=== PATIENT | female | born 1990 | race Caucasian/White ===

== ENCOUNTER 2017-08-06 18:53 | Emergency (ER) | payer SELFPAY ==
[~2017-08-06] VITALS: Ht 165.1 cm; Wt 65.0 kg
[2017-08-06 18:54] VITALS: BP 114/92; PULSE 108; RESP 16; TEMP 98.2; O2SAT 98
--- NOTE | 2017-08-06 20:10 | PD ---
HPI Chief Complaint: Complaint Time Seen by Provider: 20:05 Travel History International Travel<30 days: No Contact w/Intl Traveler<30days: No Traveled to known affect area: No History of Present Illness HPI 27-year-old female presents to the emergency department for evaluation of urinary symptoms. Patient reports dysuria, pressure, frequency, urgency. Current pain is 4/10. She denies any fevers or chills. No flank pain. No vomiting. She reports history of UTIs with similar symptoms. She denies any abnormal vaginal discharge or risk of STDs. Mild severity. PFSH Past Medical History Immunizations Current: Yes Tetanus Vaccination: Unknown Influenza Vaccination: Yes ?: Not LMP: 08/04/17 Social History Alcohol Use: No Tobacco Use: No Substance Use: No Allergies-Medications (Allergen,Severity, Reaction): Coded Allergies: No Known Allergies (Unverified , 08/06/17) Review of Systems Except as stated in HPI: all other systems reviewed are Neg Physical Exam Narrative GENERAL: Well-nourished, well-developed female patient, ambulatory. Afebrile. SKIN: Focused skin assessment warm/dry. HEAD: Normocephalic. Atraumatic. EYES: No scleral icterus. No injection or drainage. NECK: Supple, trachea midline. No JVD or lymphadenopathy. CARDIOVASCULAR: Regular rate and rhythm without murmurs, gallops, or rubs. RESPIRATORY: Breath sounds equal bilaterally. No accessory muscle use. Lungs sounds are clear to auscultation. GASTROINTESTINAL: Abdomen soft, non-tender, nondistended. MUSCULOSKELETAL: No cyanosis, or edema. BACK: Nontender without obvious deformity. No CVA tenderness. Data Data Last Documented VS Vital Signs Date Time Temp Pulse Resp B/P (MAP) Pulse Ox O2 Delivery O2 Flow Rate FiO2 08/06/17 18:54 98.2 108 16 114/92 (99) 98 Orders Orders Urinalysis - C+S If Indicated (08/06/17 20:05) Ed Urine Pregnancytest Poc (08/06/17 20:05) Urine Culture (08/06/17 20:10) Nitrofurantoin Monohyd Macrocr (Macrobid (08/06/17 20:45) Labs Laboratory Tests Test 08/06/17 20:10 Urine Color DARK-BROWN Urine Turbidity CLEAR Urine pH 5.5 Urine Specific [place] 1.006 Urine Protein NEG mg/dL Urine Glucose (UA) NEG mg/dL Urine Ketones NEG mg/dL Urine Occult Blood SMALL Urine Nitrite POS Urine Bilirubin NEG Urine Urobilinogen 2.0 MG/DL Urine Leukocyte Esterase MOD Urine RBC 7 /hpf Urine WBC 20 /hpf Urine Squamous Epithelial Cells 2 /hpf Urine Bacteria OCC /hpf Microscopic Urinalysis Comment CULTURE INDICATED MDM Medical Decision Making Medical Screen Exam Complete: Yes Emergency Medical Condition: Yes Medical Record Reviewed: Yes Differential Diagnosis UTI versus dysuria versus pyelonephritis Narrative Course 27-year-old female presents to the emergency department for evaluation of urinary symptoms, possible UTI. She denies any other symptoms or complaints. She appears well on exam. UA and urine test are ordered and pending. UA shows positive nitrate, moderate leukocyte esterase. Urine test is negative. Patient is given Macrobid first dose in the emergency department. She'll be discharged with a prescription for Macrobid. The patient was discharged in stable condition with instructions, including return instructions and follow up instructions. Diagnosis Primary Impression: Urinary tract infection Qualified Codes: N30.00 - Acute cystitis without hematuria Referrals: Primary Care Physician call for appointment Patient Instructions: General Instructions, Urinary Tract Infection in Women ( ED) Additional Instructions: Take antibiotic as directed until gone. Follow-up with your primary care physician. Return to the emergency department for any acute worsening of symptoms. Med/Other Pt SpecificInfo: Prescription(s) given Scripts Nitrofurantoin Monohydrate Macrocrystals (Macrobid) 100 Mg Capsule 100 MG PO BID for Infection for 7 Days, #14 CAP 0 Refills Prov: Nedra Francis 08/06/17 Disposition: 01 DISCHARGE HOME Condition: Stable Nedra Francis Aug 06, 2017 20:10
[2017-08-06 20:29] LABS: BACTERIA, URINE OCC /hpf; BILIRUBIN, URINE NEG (NEG); BLOOD, URINE SMALL (NEG); GLUCOSE,URINE NEG (NEG); KETONE, URINE NEG (NEG); NITRITE,URINE POS (NEG); PH, URINE 5.5 (5.0-8.5); SQUAMOUS EPITHELIAL CELL URINE 2 /hpf (0-5); URINE COLOR DARK-BROWN (YELLW/STRAW); URINE LEUKOCYTE ESTERASE MOD (NEG)
[2017-08-06] MEDS ORDERED: MACR100C2 PO (20:39)
[2017-08-06] MEDS ORDERED: NITROFURANTOIN MONOHYD MACROCR 100 MG CAP PO ONE (20:45)
== END 2017-08-06 20:59 | disposition home or self-care (01) ==
LOC: NEPK 18:53
DX: N30.00 Acute cystitis without hematuria (principal)
CPT/HCPCS: 81001; 84703; 87077; 87086; 87186; 99283

== ENCOUNTER 2017-08-14 18:35 | Emergency (ER) | payer SELFPAY ==
[~2017-08-14] VITALS: Ht 154.9 cm; Wt 70.0 kg
[~2017-08-14 18:35] MED LIST: MACR100C2 PO
[2017-08-14 18:53] VITALS: BP 127/84; PULSE 101; RESP 18; TEMP 99.3; O2SAT 97
[2017-08-14] MEDS ORDERED: diphenhydrAMINE HCL 25 MG CAP PO ONE (21:30)
[2017-08-14] MEDS ORDERED: DEXAMETHASONE SOD PHOS 20 MG/5 ML VIAL IM ONE (21:30)
[2017-08-14] MEDS ORDERED: FAMOTIDINE 20 MG TAB PO ONE (21:30)
--- NOTE | 2017-08-14 21:30 | PD ---
HPI Chief Complaint: Allergic/Adverse Reaction Time Seen by Provider: 21:18 Travel History International Travel<30 days: No Contact w/Intl Traveler<30days: No Traveled to known affect area: No History of Present Illness HPI 27-year-old female with no significant medical history presents emergency department for evaluation of a pruritic rash. Patient has a small amount of pruritic papules on her chin. She has a couple on her left anterior forearm and a couple on her left anterior thigh. Patient noticed these after doing yard work yesterday. She also used a new sunscreen yesterday. Patient has also been on Macrobid since August 06 for UTI. She has no rash or itching on her trunk or her greater extremities. Denies any chest pain or tightness. No difficulty breathing. No sensation of oral swelling or difficulty swallowing. No other symptoms to report. [facility] Past Medical History Medical History: Denies Significant Hx Immunizations Current: Yes Social History Alcohol Use: No Tobacco Use: No Substance Use: No Allergies-Medications (Allergen,Severity, Reaction): Coded Allergies: No Known Allergies (Unverified , 08/14/17) Reported Meds & Prescriptions Reported Meds & Active Scripts Active Macrobid (Nitrofurantoin Monohydrate Macrocrystals) 100 Mg Capsule 100 Mg PO BID 7 Days Review of Systems Except as stated in HPI: all other systems reviewed are Neg Physical Exam Narrative GENERAL: Well-nourished female patient, in no acute distress SKIN: Focused skin assessment warm/dry. Few scattered papules on the chin. There are couple other small papules on the left forearm and left thigh. No pustular vesicle formation. HEAD: Atraumatic. Normocephalic. EYES: Pupils equal and round. No scleral icterus. No injection or drainage. ENT: No nasal bleeding or discharge. Mucous membranes pink and moist. No tongue swelling. No uvular edema. NECK: Trachea midline. No JVD. No stridor CARDIOVASCULAR: Regular rate and rhythm. No murmur appreciated. RESPIRATORY: No accessory muscle use. Clear to auscultation. Breath sounds equal bilaterally. GASTROINTESTINAL: Abdomen soft, non-tender, nondistended. Hepatic and splenic margins not palpable. MUSCULOSKELETAL: No obvious deformities. No clubbing. No cyanosis. No edema. NEUROLOGICAL: Awake and alert. No obvious cranial nerve deficits. Motor grossly within normal limits. Normal speech. PSYCHIATRIC: Appropriate mood and affect; insight and judgment normal. Data Data Last Documented VS Vital Signs Date Time Temp Pulse Resp B/P (MAP) Pulse Ox O2 Delivery O2 Flow Rate FiO2 08/14/17 18:53 99.3 101 18 127/84 (98) 97 Orders Orders Famotidine (Pepcid) (08/14/17 21:30) Dexamethasone Inj (Decadron Inj) (08/14/17 21:30) Diphenhydramine (Benadryl) (08/14/17 21:30) Ed Discharge Order (08/14/17 21:32) [facility] Medical Decision Making Medical Screen Exam Complete: Yes Emergency Medical Condition: Yes Medical Record Reviewed: Yes Differential Diagnosis Contact dermatitis versus eczema versus acne versus allergic reaction Narrative Course 27-year-old female presents emergency department for evaluation of pruritic rash. This is likely secondary from either yardwork or sunscreen either way appears to be a contact dermatitis. It is very mild. Have encouraged patient to continue Benadryl and Zantac. She will be given a dose of Decadron here. She is encouraged to follow-up with the primary care provider and return immediately with any acute worsening symptoms. Diagnosis Primary Impression: Contact dermatitis Qualified Codes: L25.9 - Unspecified contact dermatitis, unspecified cause Referrals: [facility] Primary Care Physician Patient Instructions: Contact Dermatitis (ED), General Instructions Additional Instructions: Avoid scratching the rash Continue Benadryl as directed on the package as needed for itching Consider [id number] Zantac or ranitidine as directed on the package for the next 3 days Follow-up with a primary care provider Return immediately with any acute worsening symptoms Med/Other Pt SpecificInfo: No Change to Meds Disposition: 01 DISCHARGE HOME Condition: Stable Kamilla JacksonP Aug 14, 2017 21:30
== END 2017-08-14 21:59 | disposition home or self-care (01) ==
LOC: NEPC 18:35
DX: L25.9 Unspecified contact dermatitis, unspecified cause (principal)
CPT/HCPCS: 96372; 99283; J1100

== ENCOUNTER 2017-11-11 12:25 | Emergency (ER) | payer MEDICAID ==
[~2017-11-11] VITALS: Ht 152.4 cm; Wt 75.0 kg
[2017-11-11 12:46] VITALS: BP 139/98; PULSE 93; RESP 20; TEMP 98.1; O2SAT 98
--- NOTE | 2017-11-11 13:53 | PD ---
HPI Chief Complaint: Flank/Kidney Pain Time Seen by Provider: 12:57 Travel History International Travel<30 days: No Contact w/Intl Traveler<30days: No Traveled to known affect area: No History of Present Illness HPI The patient was seen and examined in the presence of the nurse. This patient complains of abdominal pain. Location is left lower quadrant. Severity is moderate. Duration 2 days. No alleviating factors. She has some nausea and vomiting. No diarrhea. No fever. She denies urinary complaints. No pelvic discharge or symptoms. No exacerbating factors. PFSH Past Medical History Medical History: Denies Significant Hx Immunizations Current: Yes Tetanus Vaccination: Unknown Influenza Vaccination: Yes ?: Not LMP: 10/19/17 Past Surgical History Section: Yes Social History Alcohol Use: No Tobacco Use: No Substance Use: No Allergies-Medications (Allergen,Severity, Reaction): Coded Allergies: No Known Allergies (Unverified , 11/11/17) Reported Meds & Prescriptions Reported Meds & Active Scripts Active Zofran (Ondansetron HCl) 4 Mg Tab 4 Mg PO Q6HR PRN Percocet (Oxycodone-Acetaminophen) 7.5-325 mg Tab 1 Tab PO Q6H PRN Review of Systems General / Constitutional: No: Fever Eyes: No: Visual changes HENT: No: Headaches Cardiovascular: No: Chest Pain or Discomfort Respiratory: No: Shortness of Breath Gastrointestinal: Positive: Nausea, Vomiting, Abdominal Pain Genitourinary: No: Dysuria Musculoskeletal: No: Pain Skin: No Rash Neurologic: No: Weakness Psychiatric: No: Depression Endocrine: No: Polydipsia Hematologic/Lymphatic: No: Easy Bruising Physical Exam Narrative GENERAL: Well-nourished, well-developed patient with left lower quadrant pain SKIN: Focused skin assessment reveals no rash and nodules. Skin is Warm and dry. HEAD: Atraumatic. Normocephalic. EYES: Pupils equal and round. No scleral icterus. No injection or drainage. ENT: No nasal bleeding or discharge. Mucous membranes pink and moist. NECK: Trachea midline. No JVD. CARDIOVASCULAR: Regular rate and rhythm. No murmur appreciated. RESPIRATORY: No accessory muscle use. Clear to auscultation. Breath sounds equal bilaterally. GASTROINTESTINAL: Abdomen soft, mild left lower quadrant tenderness without rebound or guarding, nondistended. Hepatic and splenic margins not palpable. MUSCULOSKELETAL: No obvious deformities. No clubbing. No cyanosis. No edema. NEUROLOGICAL: Awake and alert. No obvious cranial nerve deficits. Motor grossly within normal limits. Normal speech. PSYCHIATRIC: Appropriate mood and affect; insight and judgment normal. Data Data Last Documented VS Vital Signs Date Time Temp Pulse Resp B/P (MAP) Pulse Ox O2 Delivery O2 Flow Rate FiO2 11/11/17 12:46 98.1 93 20 139/98 (112) 98 Orders Orders Iv Access Insert/Monitor (11/11/17 13:39) Complete Blood Count With Diff (11/11/17 13:39) Basic Metabolic Panel (Bmp) (11/11/17 13:39) Urinalysis - C+S If Indicated (11/11/17 13:39) Ct Abd/Pel W Iv Contrast(Rout) (11/11/17 ) Ed Urine Pregnancytest Poc (11/11/17 13:39) Ketorolac Inj (Toradol Inj) (11/11/17 14:30) Ondansetron Odt (Zofran Odt) (11/11/17 14:30) Urine Culture (11/11/17 14:10) Sodium Chlor 0.9% 1000 Ml Inj (Ns 1000 M (11/11/17 14:45) Iohexol 350 Inj (Omnipaque 350 Inj) (11/11/17 15:31) Labs Laboratory Tests Test 11/11/17 14:10 White Blood Count 12.3 TH/MM3 Red Blood Count 4.55 MIL/MM3 Hemoglobin 13.3 GM/DL Hematocrit 39.5 % Mean Corpuscular Volume 86.8 FL Mean Corpuscular Hemoglobin 29.3 PG Mean Corpuscular Hemoglobin Concent 33.8 % Red Cell Distribution Width 13.3 % Platelet Count 324 TH/MM3 Mean Platelet Volume 7.7 FL Neutrophils (%) (Auto) 86.3 % Lymphocytes (%) (Auto) 9.9 % Monocytes (%) (Auto) 3.4 % Eosinophils (%) (Auto) 0.2 % Basophils (%) (Auto) 0.2 % Neutrophils # (Auto) 10.6 TH/MM3 Lymphocytes # (Auto) 1.2 TH/MM3 Monocytes # (Auto) 0.4 TH/MM3 Eosinophils # (Auto) 0.0 TH/MM3 Basophils # (Auto) 0.0 TH/MM3 CBC Comment DIFF FINAL Differential Comment Urine Color YELLOW Urine Turbidity CLOUDY Urine pH 5.5 Urine Specific [place] 1.026 Urine Protein TRACE mg/dL Urine Glucose (UA) NEG mg/dL Urine Ketones NEG mg/dL Urine Occult Blood MOD Urine Nitrite NEG Urine Bilirubin NEG Urine Urobilinogen LESS THAN 2.0 MG/DL Urine Leukocyte Esterase NEG Urine RBC 17 /hpf Urine WBC 2 /hpf Urine Squamous Epithelial Cells 28 /hpf Urine Calcium Oxalate Crystals RARE /hpf Urine Bacteria MOD /hpf Urine Mucus MOD /lpf Microscopic Urinalysis Comment CULTURE INDICATED Blood Urea Nitrogen 11 MG/DL Creatinine 1.04 MG/DL Random Glucose 100 MG/DL Calcium Level 8.9 MG/DL Sodium Level 140 MEQ/L Potassium Level 3.9 MEQ/L Chloride Level 105 MEQ/L Carbon Dioxide Level 28.7 MEQ/L Anion Gap 6 MEQ/L Estimat Glomerular Filtration Rate 63 ML/MIN MDM Medical Decision Making Medical Screen Exam Complete: Yes Emergency Medical Condition: Yes Medical Record Reviewed: Yes Differential Diagnosis Colitis, ectopic, irritable bowel syndrome Narrative Course I have reviewed the patient's electronic medical record. I ordered extensive workup for her abdominal pain. Urine is negative IV placed and labs sent She specifically requests no narcotics will have given her 30 mg's IV [address] of abdomen and pelvis shows a large left-sided kidney stone. I reviewed this with the patient. She clinically looks well. She her pain is much better. The stone is not likely to pass and she will need urology follow- up. She is understanding of this. If she clinically has significant worsening and cannot get follow-up she will return here I wrote her pain and nausea medication to use if needed Her labs are normal including normal creatinine Diagnosis Primary Impression: Kidney stone on left side Additional Instructions: Follow-up with urology The patient was warned about potential sedation for the medications they will receive on prescription. Med/Other Pt SpecificInfo: Prescription(s) given Scripts Ondansetron (Zofran) 4 Mg Tab 4 MG PO Q6HR Y for NAUSEA OR VOMITING, #12 TAB 0 Refills Prov: Deshaun Jj MD 11/11/17 Oxycodone-Acetaminophen (Percocet) 7.5-325 mg Tab 1 TAB PO Q6H Y for PAIN, #12 TAB 0 Refills Prov: Deshaun Jj MD 11/11/17 Disposition: 01 DISCHARGE HOME Condition: Stable Deshaun Jj MD November 11, 2017 13:53
[2017-11-11 14:21] LABS: AUTOMATED NEUTROPHIL # 10.6 TH/MM3 (1.8-7.7); BASOPHIL % 0.2 % (0.0-2.0); EOSINOPHIL % 0.2 % (0.0-4.0); HEMATOCRIT 39.5 % (35.0-46.0); HEMOGLOBIN 13.3 GM/DL (11.6-15.3); LYMPH % 9.9 % (9.0-44.0); LYMPHOCYTE # 1.2 TH/MM3 (1.0-4.8); MEAN CELL VOLUME 86.8 FL (80.0-100.0); MEAN CORPUSCULAR HEMOGLOBIN 29.3 PG (27.0-34.0); MEAN CORPUSCULAR HGB CONC 33.8 % (32.0-36.0); MEAN PLATELET VOLUME 7.7 FL (7.0-11.0); MONO % 3.4 % (0.0-8.0); MONOCYTE # 0.4 TH/MM3 (0-0.9); NEUT % 86.3 % (16.0-70.0); PLATELET COUNT 324 TH/MM3 (150-450); RED BLOOD COUNT 4.55 MIL/MM3 (4.00-5.30); RED CELL DISTRIBUTION WIDTH 13.3 % (11.6-17.2); WHITE BLOOD COUNT 12.3 TH/MM3 (4.0-11.0)
[2017-11-11] MEDS ORDERED: ONDANSETRON ODT 4 MG TAB PO ONE (14:30)
[2017-11-11] MEDS ORDERED: KETOROLAC TROMETHAMINE 30 MG/ML (IVP) VIAL IV PUSH ONE (14:30)
[2017-11-11 14:34] LABS: BACTERIA, URINE MOD /hpf; BILIRUBIN, URINE NEG (NEG); BLOOD, URINE MOD (NEG); CALCIUM OXALATE CRYSTALS,URINE RARE /hpf; GLUCOSE,URINE NEG (NEG); KETONE, URINE NEG (NEG); MUCUS URINE MOD /lpf (OCC); NITRITE,URINE NEG (NEG); PH, URINE 5.5 (5.0-8.5); SQUAMOUS EPITHELIAL CELL URINE 28 /hpf (0-5); URINE COLOR YELLOW (YELLW/STRAW); URINE LEUKOCYTE ESTERASE NEG (NEG)
[2017-11-11 14:41] LABS: BICARBONATE 28.7 MEQ/L (21.0-32.0); CALCIUM 8.9 MG/DL (8.5-10.1); CREATININE 1.04 MG/DL (0.50-1.00)
[2017-11-11] MEDS ORDERED: SODIUM CHLOR 0.9% 1000 ML INJ 1,000 ML IV ONE (14:45)
[2017-11-11] MEDS ORDERED: IOHEXOL 350 MG/ML 10 ML VIAL (for RAD DIAG) IVCONTRAST ONE (15:31)
--- NOTE | 2017-11-11 15:43 | RADRPT ---
EXAM DATE: 11/11/2017 3:31 PM EDT AGE/SEX: 27 years / Female INDICATIONS: Left lower quadrant pain CLINICAL DATA: This is the patient's initial encounter. Patient reports that signs and symptoms have been present for 1 day and indicates a pain score of 8/10. MEDICAL/SURGICAL HISTORY: None. section. ORAL CONTRAST: No oral contrast ingested. RADIATION DOSE: 10.34 CTDI (mGy) COMPARISON: No prior [place] exams available for comparison. TECHNIQUE: Multiple contiguous axial images were obtained through the abdomen and pelvis following b olus infusion of 95 ml Omnipaque 350 (iohexol) nonionic water-soluble contrast as a single exam dos e. No oral contrast ingested. Using automated exposure control and adjustment of the mA and/or kV ac cording to patient size, the radiation dose was kept as low as reasonably achievable to obtain optima l diagnostic quality images. FINDINGS: Lower Lungs: The visualized lower lungs are clear. Liver: The liver has a homogeneous density with a 2 cm low-attenuation lesion in the posterior right lobe of the liver. The gallbladder is unremarkable. There is no dilation of the biliary tree. Spleen: Homogeneous density without enlargement. Pancreas: Unremarkable without mass or calcification. Kidneys: The right kidney is unremarkable in appearance. The left kidney is enlarged with delayed ne phrogram and mild to moderate hydronephrosis. There is a proximal left ureteral calculus measuring up to 1.2 x .9 cm. The ureters below this point are unremarkable. Adrenal Glands: Unremarkable. Aorta: The aorta and proximal iliac vessels are grossly unremarkable without aneurysmal dilation. Bowel/Mesentery: The bowel loops are grossly unremarkable. The cecum and sigmoid colon have a normal configuration. Abdominal Wall: Intact. Retroperitoneum: No evidence of adenopathy in the retrocrural, para-aortic, or deep pelvic regions. Bladder: Contours are smooth. Reproductive Organs: No abnormal masses or calcifications seen. Inguinal: The inguinal region is unremarkable without evidence of adenopathy. Bony Structures: Unremarkable. CONCLUSION: 1. 1.2 x 0.9 cm proximal left ureteral calculus with mild to moderate hydronephrosis and delayed lef t nephrogram. 2. 2 cm low-attenuation lesion in the right lobe of the liver which is nonspecific. Electronically signed by: Kevin Salamanca MD 11/11/2017 3:41 PM EDT
[2017-11-11] MEDS ORDERED: ZOFR4TAB PO (16:06)
[2017-11-11] MEDS ORDERED: PERC7.5T13 PO (16:06)
== END 2017-11-11 16:24 | disposition home or self-care (01) ==
LOC: NEPD 12:25
DX: N13.2 Hydronephrosis with renal and ureteral calculous obstruction (principal)
CPT/HCPCS: 74177; 80048; 81001; 84703; 85025; 87086; 96361; 96374; 99285; J1885; J7030; Q9967